=== PATIENT | female | born 1975 | race Caucasian/White ===

== ENCOUNTER 2017-05-31 16:08 | Emergency (ER) | payer OTHER ==
[~2017-05-31] VITALS: Ht 152.4 cm; Wt 84.5 kg
[2017-05-31] MEDS ORDERED: MORPHINE 4 MG/ML 1ML SYRINGE IV ONE (16:30)
[2017-05-31] MEDS ORDERED: SING10TA32 PO (16:48)
[2017-05-31] MEDS ORDERED: MAXA5TAB10 PO (16:48)
[2017-05-31] MEDS ORDERED: AMBI5TAB PO (16:48)
[2017-05-31] MEDS ORDERED: HYDR12.55 PO (16:48)
[2017-05-31] MEDS ORDERED: ALBU17IN INH (16:48)
[2017-05-31] MEDS ORDERED: FLON1SPR (16:48)
[2017-05-31] MEDS ORDERED: LOSA25TA8 PO (16:48)
[2017-05-31] MEDS ORDERED: BREO1INH3 INH (16:48)
[2017-05-31] MEDS ORDERED: CLAR10CA3 PO (16:48)
[2017-05-31] MEDS ORDERED: LEXA1TAB2 PO (16:48)
[2017-05-31] MEDS ORDERED: PREV15CA18 PO (16:48)
[2017-05-31] MEDS ORDERED: MEDR4PAK PO (18:53)
[2017-05-31 18:54] VITALS: BP 118/63
--- NOTE | 2017-05-31 18:56 | REP ---
MRI LUMBAR SPINE: Sagittal and axial sequences are obtained without intravenous administration of gadolinium. Comparison made with prior study of 10/06/2014. Vertebral bodies are normal in height and are well aligned with normal lumbar lordosis. There is loss of water signal and disc degeneration at L4-L5 with mild disc space narrowing. At that level there is moderate diffuse disc bulging. There is mild central canal stenosis. These findings are unchanged since the prior exam. There is mild bilateral foraminal narrowing at this level. Other disc levels in the lumbar region demonstrate no significant disc bulging or herniation. Conus is unremarkable. IMPRESSION: No change in moderate diffuse disc bulging at L4-L5 with mild central canal stenosis and bilateral foraminal narrowing, compared to prior study of 10/06/2014. Signed by Sawyer Valdivia MD 05/31/2017 07:30 P
== END 2017-05-31 19:01 | disposition home or self-care (01) ==
LOC: M ED 16:08
DX: R19.7 Diarrhea, unspecified (principal); G89.29 Other chronic pain; M51.26 Other intervertebral disc displacement, lumbar region; I10 Essential (primary) hypertension; G43.909 Migraine, unspecified, not intractable, without status migrainosus; J45.909 Unspecified asthma, uncomplicated; K21.9 Gastro-esophageal reflux disease without esophagitis; F41.9 Anxiety disorder, unspecified; F32.9 Major depressive disorder, single episode, unspecified; Z79.899 Other long term (current) drug therapy; Z88.5 Allergy status to narcotic agent; Z88.6 Allergy status to analgesic agent

== ENCOUNTER → 2017-10-01 | Outpatient (REF) | payer OTHER ==
[~2017-10-01] MED LIST: ALBU17IN INH; AMBI5TAB PO; BREO1INH3 INH; CLAR10CA3 PO; FLON1SPR; HYDR12.55 PO; LEXA1TAB2 PO; LOSA25TA8 PO; MAXA5TAB10 PO; MEDR4PAK PO; PREV15CA18 PO; SING10TA32 PO
[2017-10-01 14:27] LABS: INR 0.99
== END ==
LOC: M LABDRAW1 11:10
PROVIDERS: ATTEND Physical Medicine & Rehabilitation
DX: Z01.812 Encounter for preprocedural laboratory examination (principal)

== ENCOUNTER → 2018-03-12 | Outpatient (REF) | payer OTHER ==
[2018-03-12 19:08] LABS: ERYTHROCYTE SEDIMENTATION RATE 16 mm/hr (0-20); REASON FOR REVIEW PLATELET MORPHOLOGY; SLIDE REVIEW Report; SOURCE PERIPHERAL SMEAR
== END ==
LOC: M LAB REF 18:17
DX: D47.3 Essential (hemorrhagic) thrombocythemia (principal); D72.89 Other specified disorders of white blood cells
CPT/HCPCS: 85652

== ENCOUNTER → 2023-03-29 | Outpatient (CLI) | payer OTHER ==
[~2023-03-29] MED LIST changes: +LOSA25TA13 PO; -LOSA25TA8 PO; +MONT-5 PO; -PREV15CA18 PO; +PREV15CA24 PO; +RIZA5TAB2 PO; -SING10TA32 PO; +SYMB80INH INH; +VENTAER INH
== END ==
LOC: M WUC 09:31
PROVIDERS: ATTEND Nurse Practitioner Family
DX: M79.644 Pain in right finger(s) (principal)